=== PATIENT | female | born 1995 | race Caucasian/White ===

== ENCOUNTER 2019-05-31 12:16 | Emergency (ER) | payer MEDICAID, OTHER ==
[~2019-05-31] VITALS: Ht 157.5 cm; Wt 46.0 kg
[2019-05-31 12:41] VITALS: BP 102/60
[2019-05-31] MEDS ORDERED: triamcinolone acetonide 40mg/ml inj IM ONE (13:05)
[2019-05-31] MEDS ORDERED: METH4TAB81 PO (13:21)
[2019-05-31] MEDS ORDERED: TRIA15CR61 TP (13:21)
== END 2019-05-31 13:38 | disposition home or self-care (01) ==
LOC: ER 12:17
DX: L23.7 Allergic contact dermatitis due to plants, except food (principal)
CPT/HCPCS: 96372; 99283; J3301

== ENCOUNTER 2022-01-10 14:24 | Emergency (ER) | payer MEDICAID ==
[~2022-01-10] VITALS: Ht 157.5 cm; Wt 49.0 kg
[~2022-01-10 14:24] MED LIST: METH4TAB81 PO
[2022-01-10 14:35] VITALS: BP 115/74
[2022-01-10] MEDS ORDERED: ETON68IM3 SQ (17:14)
== END 2022-01-10 17:34 | disposition home or self-care (01) ==
LOC: ER 14:24
DX: S06.0X0A Concussion without loss of consciousness, initial encounter (principal); R51.9 Headache, unspecified; X58.XXXA Exposure to other specified factors, initial encounter; Y93.89 Activity, other specified; Y92.89 Other specified places as the place of occurrence of the external cause; Y99.8 Other external cause status
CPT/HCPCS: 70450; 99284

== ENCOUNTER 2022-06-24 19:51 | Emergency (ER) | payer MEDICAID ==
[~2022-06-24] VITALS: Ht 154.9 cm; Wt 50.0 kg
[~2022-06-24 19:51] MED LIST changes: +ETON68IM4 SQ; -METH4TAB81 PO
[2022-06-24 20:11] VITALS: BP 122/77
== END 2022-06-24 22:50 | disposition left against medical advice (07) ==
LOC: ER 19:51
DX: S61.412A Laceration without foreign body of left hand, initial encounter (principal); Z53.21 Procedure and treatment not carried out due to patient leaving prior to being seen by health care provider; W26.0XXA Contact with knife, initial encounter; Y93.89 Activity, other specified; Y92.89 Other specified places as the place of occurrence of the external cause; Y99.8 Other external cause status
CPT/HCPCS: A6449